=== PATIENT | male | born 1985 | race Caucasian/White ===

== ENCOUNTER → 2019-01-23 | Outpatient (CLI) | payer BC ==
--- NOTE | 2019-01-23 08:46 | RAD ---
Indication:elevated LFTs. Has no abdomen complaints. TECHNIQUE: Grayscale, color Doppler and spectral waveform is of the abdomen obtained. COMPARISON:None FINDINGS: Pancreas is not visualized due to overlying bowel gas. IVC is within normal limits. No aortic aneurysm. Main portal vein is patent with hepatopedal flow. Hepatic veins are patent. No gallstones, pericholecystic fluid or gallbladder wall thickening. Liver measures 16 cm in longest dimension and is normal in size and echogenicity. Right kidney measures 11.5 cm in length without hydronephrosis. CBD measures 3 mm in diameter and is within normal limits. Spleen measures 13.3 cm in length and is mildly enlarged. Left kidney measures 12 cm in length without hydronephrosis. IMPRESSION: 1. No hepatomegaly or hepatic steatosis. 2. Minimally enlarged spleen, nonspecific. Electronically signed by: Jaime Moya DO (01/23/2019 8:43 AM) [facility]
== END | disposition home or self-care (01) ==
LOC: US 07:40
PROVIDERS: ATTEND Nurse Practitioner Adult Health
DX: R94.5 Abnormal results of liver function studies (principal)
CPT/HCPCS: 76700